=== PATIENT | female | born 1990 | race Native Hawaiian/Other Pacific Islander ===

== ENCOUNTER 2020-08-22 09:32 | Emergency (ER) | payer OTHER ==
[~2020-08-22] VITALS: Ht 160 cm; Wt 87.5 kg
[2020-08-22 11:00] VITALS: BP 119/72; TEMP 98.2
== END 2020-08-22 11:00 | disposition home or self-care (01) ==
LOC: ED 09:32
DX: M54.2 Cervicalgia (principal); G89.29 Other chronic pain
CPT/HCPCS: 99282

== ENCOUNTER 2020-10-11 20:14 | Emergency (ER) | payer OTHER ==
[~2020-10-11] VITALS: Ht 160 cm; Wt 87.5 kg
[2020-10-11 21:10] VITALS: BP 128/72; TEMP 98.3
== END 2020-10-11 21:10 | disposition home or self-care (01) ==
LOC: ED 20:14
DX: J01.00 Acute maxillary sinusitis, unspecified (principal); F17.210 Nicotine dependence, cigarettes, uncomplicated
CPT/HCPCS: 96372; 99283; J1100

== ENCOUNTER 2020-11-29 14:24 | Emergency (ER) | payer OTHER ==
[~2020-11-29] VITALS: Ht 160 cm; Wt 87.5 kg
[2020-11-29 14:48] VITALS: TEMP 98.6
[2020-11-29 15:43] LABS: PLATELET COUNT 368 K/uL (152-353)
[2020-11-29 15:48] LABS: POTASSIUM 3.7 mmol/L (3.6-5.2)
[2020-11-29 17:07] VITALS: BP 136/80
== END 2020-11-29 17:08 | disposition home or self-care (01) ==
LOC: ED 14:24
PROVIDERS: Family Medicine
DX: J02.9 Acute pharyngitis, unspecified (principal); J06.9 Acute upper respiratory infection, unspecified; F17.210 Nicotine dependence, cigarettes, uncomplicated
CPT/HCPCS: 80053; 85027; 87502; 87651; 99283